=== PATIENT | female | born 1935 | race Caucasian/White ===

== ENCOUNTER → 2016-11-29 | Outpatient (CLI) | payer OTHER, MEDICARE ==
--- NOTE | ~2016-11-29 | MY11 ---
[facility] A Service of [facility] RADIOLOGY TEXT RESULTS PATIENT: LEWIS KILGORE [facility] 35 UNIT #: [id number] AGE: [address]: Sheldon Palacio MD SEX: F ORDER DR: [id number] [facility] [address] [place], [place] [address] [id number] O MR#: [id number] Acc #: [id number] NAME: LEWIS KILGORE : 1935 SEX: F STUDY DATE/TIME: 11/29/2016 15:51 [facility] ROOM: STUDY DESCRIPTION: MY Mammogram Screening [place] Attending Physician: Sheldon Palacio M.D. Ordering Physician: Sheldon Palacio M.D. Primary Care Physician: Sheldon Palacio M.D. MEDICAL IMAGING REPORT This report is preliminary unless electronic signature is present EXAM Screening mammogram, 11/29 INDICATIONS 81-year-old with no personal history but a positive family history of breast cancer. No current complaints. FINDINGS Routine digital screening views of both breasts were obtained. Study is reviewed with an FDA-approved CAD device. Comparison is made with 10/13/2014, 08/20/2012. Breast parenchyma shows scattered fibroglandular densities. No new masses or suspicious microcalcifications are seen. Benign calcifications are stable in both breasts. IMPRESSION Benign mammogram. Routine screen in 1 year is recommended. Patients over the age of 40 are entered into a reminder system with target due date for the next mammogram. A result letter will also be sent to the patient. BIRADS: 2 Benign Finding Dictated by... Jed Sanderson Jr., M.D. THIS IS AN ELECTRONICALLY VERIFIED REPORT Jed Sanderson Jr., M.D. at 11/30/2016 10:17 AM RLK/psc [facility] A Service of [facility] RADIOLOGY TEXT RESULTS PATIENT: LEWIS KILGORE [facility] 35 UNIT #: [id number] AGE: [address]: Sheldon Palacio MD SEX: F ORDER DR: TD: 11/29/2016 21:46 JOB #: [id number] MEDICAL IMAGING REPORT Page 1 of 1 COPY
--- NOTE | ~2016-11-29 | BD1 ---
[facility] A Service of [facility] RADIOLOGY TEXT RESULTS PATIENT: LEWIS KILGORE LOCATION: [facility] : 35 UNIT #: [id number] AGE: [address]: Sheldon Palacio MD SEX: F ORDER DR: [id number] [facility] [address] [place], [place] [address] [id number] O MR#: [id number] Acc #: [id number] NAME: LEWIS KILGORE : 1935 SEX: F STUDY DATE/TIME: 11/29/2016 15:43 UNIT: [facility] ROOM: STUDY DESCRIPTION: BD Dexa Bone Dens 1+ Site Attending Physician: Sheldon Palacio M.D. Ordering Physician: Sheldon Palacio M.D. Primary Care Physician: Sheldon Palacio M.D. MEDICAL IMAGING REPORT This report is preliminary unless electronic signature is present EXAM DXA scan 11/29/2016 HISTORY Status post menopause with no hormone replacement therapy. Osteopenia. Hysterectomy at age 29. Hypertension with blood pressure medication for 3.5 years. Smoking history for 30 years. FINDINGS Bone mineral density in the lumbar spine from L1-L4 is 0.818 g/cm2 which is 2.1 standard deviations below the mean when compared to the young adult reference population which is characteristic of osteopenia. This is 0.7 standard deviations above the mean when compared to the age-matched population. Compared with 10/13/2014, there has been a decrease in bone mineral density in the lumbar spine of 4.5%. Bone mineral density in the left femoral neck was 0.655 g/cm2 which is 1.7 standard deviations below the mean when compared to young adult reference population which is characteristic of osteopenia. This is 0.6 standard deviations above the mean when compared to the age-matched population. Compared with 10/13/2014, there has been a decrease in bone mineral density in the left hip of 17.8%. IMPRESSION Bone mineral density in the lumbar spine and the left hip characteristic of osteopenia. Compared with 10/13/2014, there has been a decrease in bone mineral density in the lumbar spine and the left hip. Dictated by... Rudy Bullock M.D. THIS IS AN ELECTRONICALLY VERIFIED REPORT [facility]. [facility] A Service of [facility] RADIOLOGY TEXT RESULTS PATIENT: LEWIS KILGORE LOCATION: [facility] : 35 UNIT #: [id number] AGE: [address]: Sheldon Palacio MD SEX: F ORDER DR: Rudy Bullock M.D. at 11/30/2016 8:01 AM KRT/pcl TD: 11/29/2016 22:07 JOB #: [id number] MEDICAL IMAGING REPORT Page 1 of 1 COPY
== END | disposition home or self-care (01) ==
LOC: CWCC 14:58
DX: Z12.31 Encounter for screening mammogram for malignant neoplasm of breast (principal); Z80.3 Family history of malignant neoplasm of breast; M81.0 Age-related osteoporosis without current pathological fracture; M85.89 Other specified disorders of bone density and structure, multiple sites
CPT/HCPCS: 77080; G0202